=== PATIENT | male | born 1980 | race Caucasian/White ===

== ENCOUNTER 2021-08-05 07:20 | Inpatient (IN) | payer OTHER ==
[~2021-08-05] VITALS: Ht 167.6 cm; Wt 81.0 kg
[2021-08-05 08:06] LABS: HEMOGLOBIN 15.9 gm/dl (14.0-17.5); RED BLOOD COUNT 5.2 M/UL (4.20-5.50); WHITE BLOOD COUNT 21.8 K/UL (4.5-11.0)
[2021-08-05 08:29] LABS: BUN/CREATININE RATIO 11 (0-10)
[2021-08-06 05:41] LABS: HEMOGLOBIN 14.1 gm/dl (14.0-17.5); RED BLOOD COUNT 4.68 M/UL (4.20-5.50); WHITE BLOOD COUNT 24.2 K/UL (4.5-11.0)
[2021-08-07 03:37] LABS: BUN/CREATININE RATIO 23 (0-10)
[2021-08-08 04:18] LABS: BUN/CREATININE RATIO 29 (0-10)
[2021-08-09 06:47] LABS: HEMOGLOBIN 13.7 gm/dl (14.0-17.5); RED BLOOD COUNT 4.5 M/UL (4.20-5.50); WHITE BLOOD COUNT 8.8 K/UL (4.5-11.0)
[2021-08-09 07:19] LABS: BUN/CREATININE RATIO 24 (0-10)
[2021-08-10 02:47] LABS: HEMOGLOBIN 13.4 gm/dl (14.0-17.5); RED BLOOD COUNT 4.46 M/UL (4.20-5.50)
[2021-08-10 02:49] LABS: BUN/CREATININE RATIO 22 (0-10)
[2021-08-10 02:55] LABS: WHITE BLOOD COUNT 17.5 K/UL (4.5-11.0)
[2021-08-11 04:51] LABS: HEMOGLOBIN 12.7 gm/dl (14.0-17.5); RED BLOOD COUNT 4.25 M/UL (4.20-5.50); WHITE BLOOD COUNT 13.8 K/UL (4.5-11.0)
[2021-08-11 05:15] LABS: BUN/CREATININE RATIO 22 (0-10)
[2021-08-12 05:49] LABS: BUN/CREATININE RATIO 30 (0-10)
[2021-08-12] MEDS ORDERED: NARCAN4 MG INH (16:16)
[2021-08-13 05:20] LABS: HEMOGLOBIN 13.5 gm/dl (14.0-17.5); RED BLOOD COUNT 4.5 M/UL (4.20-5.50)
[2021-08-13 05:41] LABS: WHITE BLOOD COUNT 9.4 K/UL (4.5-11.0)
[2021-08-13 05:47] LABS: BUN/CREATININE RATIO 28 (0-10)
--- NOTE | 2021-08-13 23:52 | NUR ---
AWAKE,CONTINUES TO HAVE IRRATIONAL CONVERSATIONS AT TIMES .BUT, REDIRECTS EASILY. FREQUENTLY ASK , " ARE YOU GOING TO KILL?" REASSSURENCE GIVEN FREQUENTLY. SIGNIFICANT OTHER AT BEDSIDE STATES HE IS HAVING OCCASIONAL HALLUCINATIONS SUCH A MAN IN THE ROOM WITH A GUN . ATTEMPTS TO WIPE HIS FACE OFF WITH A WET WASHCLOTH CAUSED AN INCREASE IN ANXIETY. SUSPICIOUS ABOUT WHAT WAS PUT ON THE WASHCLOTH. REMAINS RESTLESS AND ANXIOUS.
[2021-08-14 05:16] LABS: ADENOVIRUS F 40/41 Not Detected (Negative); ASTROVIRUS Not Detected (Negative); CAMPYLOBACTER Not Detected (Negative); CRYPTOSPORIDIUM Not Detected (Negative); E.COLI 0157 Not Detected (Negative); ENTAMOEBA HISTOLYTICA Not Detected (Negative); ENTEROAGGREGATIVE E.COLI (EAEC Not Detected (Negative); ENTEROPATHOGENIC E.COLI (EPEC) Not Detected (Negative); ENTEROTOXIGENIC E.COLI (ETEC) Not Detected (Negative); GIARDIA LAMBLIA Not Detected (Negative); NOROVIRUS GI/GII Not Detected (Negative); PLESIOMONAS SHIGELLOIDES Not Detected (Negative); ROTOVIRUS A Not Detected (Negative); SALMONELLA Not Detected (Negative); SAPOVIRUS Not Detected (Negative); SHIG/ENTEROINVAS.ECOLI (EIEC) Not Detected (Negative); SHIGA-LIK TOX.PRO.E.COLI (STEC Not Detected (Negative); VIBRIO Not Detected (Negative); VIBRIO CHOLERAE Not Detected (Negative); YERSINIA ENTEROCOLITICA Not Detected (Negative)
--- NOTE | 2021-08-14 05:16 | NUR ---
PORTABLE CHEST X-RAY DONE. VERY UNCOOPERATIVE. SUSPICIOUS OF EVERYONE. HAVING AUDITORY AND VISUAL HALLUCINATIONS. PRECEDEX INFUSING AT 1.5 MCGS .
[2021-08-14 14:07] LABS: BUN/CREATININE RATIO 35 (0-10)
[2021-08-15] MEDS ORDERED: ASPIRIN81 MG PO (16:11)
[2021-08-16 08:20] LABS: HEMOGLOBIN 13.5 gm/dl (14.0-17.5); RED BLOOD COUNT 4.47 M/UL (4.20-5.50)
[2021-08-16 08:38] LABS: BUN/CREATININE RATIO 37 (0-10)
[2021-08-17 02:25] LABS: BUN/CREATININE RATIO 32 (0-10)
[2021-08-17 09:11] LABS: HBSAG SCREEN Negative (Negative); HCV AB 0.1 (0.0-0.9); HEP A AB, IGM Negative (Negative); HEP B CORE AB, IGM Negative (Negative)
[2021-08-19 01:52] LABS: HEMOGLOBIN 13.8 gm/dl (14.0-17.5); RED BLOOD COUNT 4.55 M/UL (4.20-5.50)
[2021-08-19 01:54] LABS: WHITE BLOOD COUNT 6.8 K/UL (4.5-11.0)
[2021-08-19 02:25] LABS: BUN/CREATININE RATIO 27 (0-10)
[2021-08-19] MEDS ORDERED: MIDODRINE HCL2.5 MG PO (10:15)
--- NOTE | 2021-08-19 10:33 | NUR ---
PER . PT CAN OPERATE MOTORVEHICLE WITHOUT RESTRICTIONS.
== END 2021-08-19 11:10 | disposition home or self-care (01) | DRG 917 ==
LOC: ER1 07:20 → PROG CARE 08:15 → CCU 08:15 → CDU 08:15 → CCU 09:31 → PROG CARE 08-16 10:31
PROVIDERS: Emergency Medicine; Internal Medicine; Internal Medicine Interventional Cardiology; Internal Medicine Pulmonary Disease; Physician Assistant; ADMIT Internal Medicine
PROC: 3E03329 Introduction of Other Anti-infective into Peripheral Vein, Percutaneous Approach (ICD-10-PCS; principal; 2021-08-05)
PROC: 3E033XZ Introduction of Vasopressor into Peripheral Vein, Percutaneous Approach (ICD-10-PCS; 2021-08-05)
PROC: B24BZZZ Ultrasonography of Heart with Aorta (ICD-10-PCS; 2021-08-05)
PROC: 0BH17EZ Insertion of Endotracheal Airway into Trachea, Via Natural or Artificial Opening (ICD-10-PCS; 2021-08-05)
PROC: 5A1955Z Respiratory Ventilation, Greater than 96 Consecutive Hours (ICD-10-PCS; 2021-08-05)
PROC: 5A0945A Assistance with Respiratory Ventilation, 24-96 Consecutive Hours, High Flow/Velocity Cannula (ICD-10-PCS; 2021-08-13)
PROC: 4A02XFZ Measurement of Cardiac Rhythm, External Approach (ICD-10-PCS; 2021-08-18)
PROC: 4A03XB1 Measurement of Arterial Pressure, Peripheral, External Approach (ICD-10-PCS; 2021-08-18)
DX: T50.7X1A Poisoning by analeptics and opioid receptor antagonists, accidental (unintentional), initial encounter (principal); J69.0 Pneumonitis due to inhalation of food and vomit; A41.9 Sepsis, unspecified organism; R65.21 Severe sepsis with septic shock; I21.A1 Myocardial infarction type 2; N17.0 Acute kidney failure with tubular necrosis; G92.8 Other toxic encephalopathy; J80 Acute respiratory distress syndrome; J18.9 Pneumonia, unspecified organism; R57.0 Cardiogenic shock; I50.41 Acute combined systolic (congestive) and diastolic (congestive) heart failure; M62.82 Rhabdomyolysis; I42.9 Cardiomyopathy, unspecified; E87.2 Acidosis; E87.0 Hyperosmolality and hypernatremia; G93.1 Anoxic brain damage, not elsewhere classified; F05 Delirium due to known physiological condition; E87.6 Hypokalemia; E86.0 Dehydration; R73.9 Hyperglycemia, unspecified; F41.9 Anxiety disorder, unspecified; R94.5 Abnormal results of liver function studies; Z20.822 Contact with and (suspected) exposure to COVID-19; Z79.899 Other long term (current) drug therapy
CPT/HCPCS: ECHO; 31500; 36415; 36600; 51702; 70450; 71045; 80048; 80053; 80074; 80202; 80307; 81001; 82140; 82550; 82553; 82803; 83036; 83605; 83735; 83880; 84100; 84132; 84439; 84443; 84484; 85025; 85027; 85610; 85730; 86140; 87040; 87070; 87081; 87205; 87507; 92526; 92610; 93005; 93270; 93306; 93308; 94002; 94003; 94640; 94645; 94760; 96374; 96375; 97116-GP-CQ; 97162; 97166; 99285; C9113; G0480; J0360; J1644; J1650; J2020; J2060; J2185; J2250; J2270; J2370; J2405; J2550; J2704; J2920; J2930; J3370; J3486; J7030; J7050; J7070; U0002